=== PATIENT | male | born 1945 | race Caucasian/White ===

== ENCOUNTER 2021-09-19 12:38 | Emergency (ER) | payer OTHER ==
[2021-09-19] MEDS ORDERED: Ketorolac Tromethamine 60 MG/2 ML VIAL ONE (13:50)
[2021-09-19] MEDS ORDERED: traMADol HCl 50 MG TAB ONE (13:50)
== END 2021-09-19 14:06 | disposition home or self-care (01) ==
LOC: NAV ERS 12:38
DX: S42.451A Displaced fracture of lateral condyle of right humerus, initial encounter for closed fracture (principal); S42.461A Displaced fracture of medial condyle of right humerus, initial encounter for closed fracture; S52.134A Nondisplaced fracture of neck of right radius, initial encounter for closed fracture; S49.101A Unspecified physeal fracture of lower end of humerus, right arm, initial encounter for closed fracture; I10 Essential (primary) hypertension; W01.0XXA Fall on same level from slipping, tripping and stumbling without subsequent striking against object, initial encounter; Y92.524 Gas station as the place of occurrence of the external cause
CPT/HCPCS: 29105; 96372; J1885